=== PATIENT | female | born 1950 | race Caucasian/White ===

== ENCOUNTER 2024-10-21 08:27 | Inpatient (IN) | payer OTHER ==
[2024-10-21] VITALS (43 sets, daily range): BP systolic 89–139; BP diastolic 30–71
[~2024-10-21] VITALS: Ht 165.1 cm; Wt 75.0 kg
[~2024-10-21 08:27] MED LIST: HUMULIN R100 UNIT/1 IJ; IRON325 M1 PO; LANTUS SOL100 UNIT/1 SC; LISINOPRIL10 M1 PO; VIBRA-TAB100 MG PO
[2024-10-21] MEDS ORDERED: IOHEXOL 300 MG/ML 100 ML VIAL IV ONE (08:45)
[2024-10-21] MEDS ORDERED: SODIUM CHLORIDE 0.9% 1,000 ML IV ONE ×3 (08:45→14:00)
[2024-10-21] MEDS ORDERED: Metoclopramide Hydrochloride 10 MG/2 ML VIAL IV ONE (08:50)
[2024-10-21] MEDS ORDERED: diphenhydrAMINE hydrochloride 50 MG/ML VIAL IV ONE (08:50)
[2024-10-21 10:00] LABS: MEAN CELL VOLUME 99.0 fl (81.0-99.0); MEAN CORPUSCULAR HGB 28.8 pg (27.0-31.0); MEAN PLATELET VOLUME 9.6 fl (9.6-12.3); NUCLEATED RED BLOOD CELL 0.0 % (0.0-0.0); NUCLEATED RED BLOOD CELL 0.0 10*3/uL (0.0-0.0); PLATELET COUNT AUTOMATED 509 10*3/uL (130-400); RED CELL DISTRI WIDTH 15.7 % (0-14.5)
[2024-10-21 10:02] LABS: MANUAL DIFF REFLEX YES
[2024-10-21 10:25] LABS: BASOPHILS 1 % (0-1)
[2024-10-21] MEDS ORDERED: SODIUM CHLORIDE 0.9% 1,000 ML IV SCH ×2 (10:25→11:20)
[2024-10-21 10:27] LABS: PLATELET SUFFICIENCY HIGH (NORMAL)
[2024-10-21 10:28] LABS: VACUOLATION OF NEUTROPHILS SLIGHT
[2024-10-21 10:32] LABS: BUN 43 mg/dl (9-23); SGPT/ALT 11 U/L (5-49)
[2024-10-21] MEDS ORDERED: CIPROFLOXACIN 200 ML IV ONE (10:35)
[2024-10-21] MEDS ORDERED: INSULIN REGULAR IN 0.9 % NACL 100 ML IV SCH ×2 (10:40→11:25)
[2024-10-21] MEDS ORDERED: ACETAMINOPHEN 325 MG TAB PO PRN (11:20)
[2024-10-21] MEDS ORDERED: ACETAMINOPHEN 650 MG SUPP R PRN (11:20)
[2024-10-21] MEDS ORDERED: LISINOPRIL20 MG PO (11:23)
[2024-10-21] MEDS ORDERED: HYDROCHLOROTH12.5 M3 PO (11:23)
[2024-10-21] MEDS ORDERED: POTASSIUM CHLORIDE 20 MEQ TAB PO PRN (11:25)
[2024-10-21] MEDS ORDERED: POTASSIUM CHLORIDE 20 MEQ/100 ML BAG IV PRN (11:25)
[2024-10-21 11:49] LABS: BILIRUBIN Negative (Negative); BLOOD Negative (Negative); CLARITY Cloudy (Clear); COLOR Yellow (Yellow); KETONE 2+ (Negative); LEUKO ESTERASE 1+ (Negative); NITRITE Negative (Negative); PH 5.0 (4.5-8.0); SPECIFIC GRAVITY 1.025 (1.001-1.030); UROBILINOGEN 0.2 E.U./dl (0.0-1.0)
[2024-10-21 11:55] LABS: BACTERIA 4+; WBC 21-30 wbc/hpf (0-5)
[2024-10-21 11:56] LABS: EPITHELIAL CELLS 16-20
[2024-10-21 11:57] LABS: RBC 0-2 rbc/hpf (0-2); YEAST 1+
[2024-10-21] MEDS ORDERED: SODIUM CHLORIDE 0.45% 1,000 ML IV SCH (12:00)
[2024-10-21] MEDS ORDERED: NOREPINEPHRINE BITARTRATE/D5W 250 ML IV SCH (14:25)
[2024-10-21 15:16] LABS: BUN 35 mg/dl (9-23)
[2024-10-21 18:46] LABS: BUN 41.0 mg/dl (9-23)
[2024-10-21 22:39] LABS: BUN 46.0 mg/dl (9-23)
[2024-10-22] VITALS: BP 102/36
[2024-10-22 02:07] LABS: BUN 46.0 mg/dl (9-23)
[2024-10-22] MEDS ORDERED: DEXTROSE 5% SALINE 0.45% 1,000 ML IV SCH (03:10)
[2024-10-22 04:00] VITALS: BP 105/45
[2024-10-22 06:55] LABS: MEAN CORPUSCULAR HGB 28.8 pg (27.0-31.0); MEAN PLATELET VOLUME 9.4 fl (9.6-12.3); NUCLEATED RED BLOOD CELL 0.0 % (0.0-0.0); NUCLEATED RED BLOOD CELL 0.0 10*3/uL (0.0-0.0); RED CELL DISTRI WIDTH 16.0 % (0-14.5)
[2024-10-22 06:59] LABS: MEAN CELL VOLUME 88.0 fl (81.0-99.0); PLATELET COUNT AUTOMATED 302 10*3/uL (130-400)
[2024-10-22 07:00] LABS: MANUAL DIFF REFLEX YES
[2024-10-22 07:24] LABS: PLATELET SUFFICIENCY NORMAL (NORMAL)
[2024-10-22 08:00] VITALS: BP 141/53
[2024-10-22 08:08] LABS: BUN 44.0 mg/dl (9-23); FREE T4 1.57 ng/dl (0.89-1.76); SGPT/ALT 16.0 U/L (5-49)
[2024-10-22] MEDS ORDERED: ATORVASTATIN CALCIUM 40 MG TABLET PO SCH (10:00)
[2024-10-22] MEDS ORDERED: METOPROLOL SUCCINATE XR 25 MG TAB PO SCH (10:00)
[2024-10-22] MEDS ORDERED: CIPROFLOXACIN 200 ML IV SCH (10:00)
[2024-10-22 10:32] LABS: BUN 44.0 mg/dl (9-23)
[2024-10-22 12:00] VITALS: BP 119/48
[2024-10-22 14:20] LABS: BUN 42.0 mg/dl (9-23)
[2024-10-22] MEDS ORDERED: HEEL PROTECTOR DEVICE ONE (14:24)
[2024-10-22 16:00] VITALS: BP 136/52
[2024-10-22] MEDS ORDERED: FUROSEMIDE 40 MG/4 ML VIAL IV ONE (17:25)
[2024-10-22 18:20] LABS: BUN 39.0 mg/dl (9-23)
[2024-10-22 20:00] VITALS: BP 158/56
[2024-10-22 22:40] LABS: BUN 37.0 mg/dl (9-23)
[2024-10-23] VITALS: BP 155/53
[2024-10-23 02:43] LABS: BUN 35.0 mg/dl (9-23)
[2024-10-23] MEDS ORDERED: FUROSEMIDE 40 MG/4 ML VIAL IV ONE (03:05)
[2024-10-23] MEDS ORDERED: Insulin Glargine, Recombinan 1 UNIT/0.01 ML SC SCH ×3 (03:05→22:00)
[2024-10-23] MEDS ORDERED: DEXTROSE 50% 25 GM/50 ML VIAL IV PRN ×2 (03:05→17:20)
[2024-10-23 04:00] VITALS: BP 111/53
[2024-10-23 05:11] LABS: BUN 34.0 mg/dl (9-23)
[2024-10-23 06:31] LABS: BASO # 0.0 10*3/uL (0.0-0.1); BASO % 0.1 % (0.0-1.0); EOS # 0.0 10*3/uL (0.0-0.4); EOS % 0.1 % (1.0-4.0); MEAN CELL VOLUME 85.9 fl (81.0-99.0); MEAN CORPUSCULAR HGB 28.1 pg (27.0-31.0); MEAN PLATELET VOLUME 9.7 fl (9.6-12.3); MONO # 0.9 10*3/uL (0.1-1.0); MONO % 6.6 % (3.0-9.0); NEUT # 11.5 10*3/uL (2.3-7.9); NEUT % 85.3 % (47.0-73.0); NUCLEATED RED BLOOD CELL 0.0 % (0.0-0.0); NUCLEATED RED BLOOD CELL 0.0 10*3/uL (0.0-0.0); PLATELET COUNT AUTOMATED 258 10*3/uL (130-400); RED CELL DISTRI WIDTH 16.7 % (0-14.5)
[2024-10-23] MEDS ORDERED: POTASSIUM CHLORIDE 20 MEQ/100 ML BAG IV PRN (07:00)
[2024-10-23] MEDS ORDERED: POTASSIUM CHLORIDE 20 MEQ TAB PO PRN (07:00)
[2024-10-23] MEDS ORDERED: INSULIN REGULAR IN 0.9 % NACL 100 ML IV SCH (07:00)
[2024-10-23] MEDS ORDERED: DEXTROSE 5% SALINE 0.45% 1,000 ML IV SCH (07:05)
[2024-10-23] MEDS ORDERED: INSULIN LISPRO 1 UNIT/0.01 ML SQ SCH ×2 (07:30→22:00)
[2024-10-23 08:00] VITALS: BP 146/52
[2024-10-23] MEDS ORDERED: VANCOMYCIN HCL 1,250 MG in SODIUM CHLORIDE 0.9% 250 ML IV SCH (09:00)
[2024-10-23 09:14] LABS: BUN 27.0 mg/dl (9-23)
[2024-10-23 12:00] VITALS: BP 152/62
[2024-10-23 12:23] LABS: BUN 31.0 mg/dl (9-23)
[2024-10-23 16:00] VITALS: BP 130/55
[2024-10-23 16:38] LABS: BUN 28.0 mg/dl (9-23)
[2024-10-23 20:00] VITALS: BP 157/33
[2024-10-24] VITALS (7 sets, daily range): BP systolic 138–169; BP diastolic 55–79
[2024-10-24 06:17] LABS: MEAN CELL VOLUME 85.0 fl (81.0-99.0); MEAN CORPUSCULAR HGB 28.5 pg (27.0-31.0); MEAN PLATELET VOLUME 9.6 fl (9.6-12.3); NUCLEATED RED BLOOD CELL 0.0 % (0.0-0.0); NUCLEATED RED BLOOD CELL 0.0 10*3/uL (0.0-0.0); PLATELET COUNT AUTOMATED 219 10*3/uL (130-400); RED CELL DISTRI WIDTH 16.6 % (0-14.5)
[2024-10-24 06:19] LABS: MANUAL DIFF REFLEX YES
[2024-10-24 06:21] LABS: BUN 26.0 mg/dl (9-23)
[2024-10-24 06:52] LABS: PLATELET SUFFICIENCY NORMAL (NORMAL)
[2024-10-24] MEDS ORDERED: ASPIRIN ENTERIC COATED 81 MG TAB PO SCH (10:00)
[2024-10-24] MEDS ORDERED: FOAM BANDAGE 1 EACH BANDAGE T ONE (23:32)
[2024-10-25 05:59] LABS: BUN 21 mg/dl (9-23)
[2024-10-25 06:21] LABS: BASO # 0.0 10*3/uL (0.0-0.1); BASO % 0.2 % (0.0-1.0); EOS # 0.1 10*3/uL (0.0-0.4); EOS % 0.8 % (1.0-4.0); MEAN CELL VOLUME 85.7 fl (81.0-99.0); MEAN CORPUSCULAR HGB 28.7 pg (27.0-31.0); MEAN PLATELET VOLUME 9.8 fl (9.6-12.3); MONO # 0.5 10*3/uL (0.1-1.0); MONO % 5.8 % (3.0-9.0); NEUT # 6.8 10*3/uL (2.3-7.9); NEUT % 78.2 % (47.0-73.0); NUCLEATED RED BLOOD CELL 0.0 % (0.0-0.0); NUCLEATED RED BLOOD CELL 0.0 10*3/uL (0.0-0.0); PLATELET COUNT AUTOMATED 192 10*3/uL (130-400); RED CELL DISTRI WIDTH 16.2 % (0-14.5)
[2024-10-25 08:00] VITALS: BP 175/62
[2024-10-25] MEDS ORDERED: LISINOPRIL 20 MG TAB PO SCH (10:00)
[2024-10-25 12:00] VITALS: BP 161/57
[2024-10-25] MEDS ORDERED: ATORVASTATIN CA40 M1 PO (12:37)
[2024-10-25] MEDS ORDERED: ASPIRIN ADULT L81 M2 PO (12:37)
[2024-10-25] MEDS ORDERED: METOPROLOL SUCC25 M2 PO (12:37)
[2024-10-25] MEDS ORDERED: CIPRO500 MG PO (13:39)
== END 2024-10-25 16:25 | disposition home or self-care (01) | DRG 871 ==
LOC: ED 08:27 → ICCU 10:45 → EDHOLD 10:45 → ICCU 10:57 → 4E 10-24 18:18
PROVIDERS: Nurse Practitioner Family; Student in an Organized Health Care Education/Training Program; ADMIT Internal Medicine; ATTEND Internal Medicine
PROC: 05HC33Z Insertion of Infusion Device into Left Basilic Vein, Percutaneous Approach (ICD-10-PCS; principal; 2024-10-21)
PROC: 02HV33Z Insertion of Infusion Device into Superior Vena Cava, Percutaneous Approach (ICD-10-PCS; 2024-10-22)
PROC: B548ZZA Ultrasonography of Superior Vena Cava, Guidance (ICD-10-PCS; 2024-10-22)
DX: A41.9 Sepsis, unspecified organism (principal); E10.10 Type 1 diabetes mellitus with ketoacidosis without coma; N17.0 Acute kidney failure with tubular necrosis; J69.0 Pneumonitis due to inhalation of food and vomit; I21.A1 Myocardial infarction type 2; E44.0 Moderate protein-calorie malnutrition; E87.5 Hyperkalemia; K21.9 Gastro-esophageal reflux disease without esophagitis; I10 Essential (primary) hypertension; Z66 Do not resuscitate; R65.20 Severe sepsis without septic shock; E86.1 Hypovolemia; D75.839 Thrombocytosis, unspecified; D64.9 Anemia, unspecified; E55.9 Vitamin D deficiency, unspecified; K52.9 Noninfective gastroenteritis and colitis, unspecified; Z88.0 Allergy status to penicillin; Z88.2 Allergy status to sulfonamides; Z79.899 Other long term (current) drug therapy; Z79.01 Long term (current) use of anticoagulants; Z79.2 Long term (current) use of antibiotics; Z86.73 Personal history of transient ischemic attack (TIA), and cerebral infarction without residual deficits; Z79.4 Long term (current) use of insulin; Z98.891 History of uterine scar from previous surgery; Z83.3 Family history of diabetes mellitus; Z68.27 Body mass index [BMI] 27.0-27.9, adult

== ENCOUNTER 2024-10-31 02:19 | Inpatient (IN) | payer OTHER ==
[2024-10-31] VITALS (9 sets, daily range): BP systolic 121–154; BP diastolic 38–71
[~2024-10-31] VITALS: Ht 170.1 cm; Wt 72.6 kg
[~2024-10-31 02:19] MED LIST changes: +ASPIRIN ADULT L81 M2 PO; +ATORVASTATIN CA40 M1 PO; +CIPRO500 MG PO; +HYDROCHLOROTH12.5 M3 PO; +LISINOPRIL20 MG PO; +METOPROLOL SUCC25 M2 PO
[2024-10-31] MEDS ORDERED: SODIUM CHLORIDE 0.9% 1,000 ML IV ONE ×4 (02:40→10:45)
[2024-10-31] MEDS ORDERED: Ondansetron Hydrochloride 4 MG/2 ML VIAL IV ONE (02:40)
[2024-10-31 02:53] LABS: MEAN CELL VOLUME 91.8 fl (81.0-99.0); MEAN CORPUSCULAR HGB 28.5 pg (27.0-31.0); MEAN PLATELET VOLUME 8.6 fl (9.6-12.3); NUCLEATED RED BLOOD CELL 0.0 % (0.0-0.0); NUCLEATED RED BLOOD CELL 0.0 10*3/uL (0.0-0.0); PLATELET COUNT AUTOMATED 568 10*3/uL (130-400); RED CELL DISTRI WIDTH 16.8 % (0-14.5)
[2024-10-31 03:02] LABS: MANUAL DIFF REFLEX YES
[2024-10-31 03:22] LABS: BUN 31.0 mg/dl (9-23)
[2024-10-31 03:26] LABS: PLATELET SUFFICIENCY HIGH (NORMAL)
[2024-10-31] MEDS ORDERED: Albuterol Sulf/Ipratropium 3 ML VIAL NEB ONE (04:30)
[2024-10-31] MEDS ORDERED: INSULIN REGULAR IN 0.9 % NACL 100 ML IV ONE (05:05)
[2024-10-31] MEDS ORDERED: INSULIN LISPRO 1 UNIT/0.01 ML SQ ONE (05:05)
[2024-10-31] MEDS ORDERED: Ondansetron Hydrochloride 4 MG/2 ML VIAL IV PRN (05:55)
[2024-10-31] MEDS ORDERED: ACETAMINOPHEN 325 MG TAB PO PRN (05:55)
[2024-10-31] MEDS ORDERED: ACETAMINOPHEN 650 MG SUPP R PRN (05:55)
[2024-10-31] MEDS ORDERED: BISACODYL 10 MG SUPP R PRN (05:55)
[2024-10-31] MEDS ORDERED: DEXTROSE 50% 25 GM/50 ML VIAL IV PRN (06:00)
[2024-10-31] MEDS ORDERED: POTASSIUM CHLORIDE 20 MEQ/100 ML BAG IV PRN (06:00)
[2024-10-31] MEDS ORDERED: POTASSIUM CHLORIDE 20 MEQ TAB PO PRN (06:00)
[2024-10-31] MEDS ORDERED: INSULIN REGULAR IN 0.9 % NACL 100 ML IV SCH (06:00)
[2024-10-31 06:22] LABS: BILIRUBIN Negative (Negative); BLOOD Trace-Lysed (Negative); CLARITY Cloudy (Clear); COLOR Yellow (Yellow); KETONE 3+ (Negative); LEUKO ESTERASE Trace (Negative); NITRITE Negative (Negative); PH 5.0 (4.5-8.0); SPECIFIC GRAVITY 1.020 (1.001-1.030); UROBILINOGEN 1.0 E.U./dl (0.0-1.0)
[2024-10-31 06:43] LABS: YEAST 4+
[2024-10-31 07:47] LABS: MEAN CELL VOLUME 92.4 fl (81.0-99.0); MEAN CORPUSCULAR HGB 29.4 pg (27.0-31.0); MEAN PLATELET VOLUME 8.5 fl (9.6-12.3); NUCLEATED RED BLOOD CELL 0.0 % (0.0-0.0); NUCLEATED RED BLOOD CELL 0.0 10*3/uL (0.0-0.0); PLATELET COUNT AUTOMATED 466 10*3/uL (130-400); RED CELL DISTRI WIDTH 17.0 % (0-14.5)
[2024-10-31 07:50] LABS: MANUAL DIFF REFLEX YES
[2024-10-31 08:14] LABS: PLATELET SUFFICIENCY HIGH (NORMAL); VACUOLATION OF NEUTROPHILS SLIGHT
[2024-10-31 08:30] LABS: BUN 26.0 mg/dl (9-23); SGPT/ALT 15.0 U/L (5-49)
[2024-10-31] MEDS ORDERED: FLUCONAZOLE IV SCH (09:00)
[2024-10-31] MEDS ORDERED: DEXTROSE 5% SALINE 0.45% 1,000 ML IV SCH (11:15)
[2024-10-31] MEDS ORDERED: POTASSIUM CHLORIDE IN WATER 100 ML IV ONE (11:25)
[2024-10-31 12:37] LABS: BUN 26.0 mg/dl (9-23)
[2024-10-31] MEDS ORDERED: POTASSIUM CHLORIDE 100 ML IV ONE (14:10)
[2024-10-31] MEDS ORDERED: HEPARIN SODIUM 10 UNIT/ML SYR IV PRN (17:20)
[2024-10-31 17:27] LABS: BUN 24.0 mg/dl (9-23)
[2024-10-31 20:25] LABS: BUN 23.0 mg/dl (9-23)
[2024-11-01] VITALS (10 sets, daily range): BP systolic 113–180; BP diastolic 42–70
[2024-11-01 00:59] LABS: BUN 23.0 mg/dl (9-23)
[2024-11-01 06:02] LABS: BUN 21 mg/dl (9-23)
[2024-11-01 08:04] LABS: BASO # 0.1 10*3/uL (0.0-0.1); BASO % 0.3 % (0.0-1.0); EOS # 0.1 10*3/uL (0.0-0.4); EOS % 0.5 % (1.0-4.0); MEAN CELL VOLUME 92.5 fl (81.0-99.0); MEAN CORPUSCULAR HGB 29.1 pg (27.0-31.0); MEAN PLATELET VOLUME 8.7 fl (9.6-12.3); MONO # 0.6 10*3/uL (0.1-1.0); MONO % 3.1 % (3.0-9.0); NEUT # 17.5 10*3/uL (2.3-7.9); NEUT % 89.5 % (47.0-73.0); NUCLEATED RED BLOOD CELL 0.0 % (0.0-0.0); NUCLEATED RED BLOOD CELL 0.0 10*3/uL (0.0-0.0); RED CELL DISTRI WIDTH 17.6 % (0-14.5)
[2024-11-01 08:25] LABS: BUN 17 mg/dl (9-23)
[2024-11-01 09:05] LABS: PLATELET COUNT AUTOMATED 325 10*3/uL (130-400)
[2024-11-01 12:15] LABS: BUN 18 mg/dl (9-23)
[2024-11-01] MEDS ORDERED: PROPOFOL 200 MG/20 ML VIAL IV ONE (15:11)
[2024-11-01] MEDS ORDERED: Lidocaine Hydrochloride 2% 5 ML SDV IV ONE (15:11)
[2024-11-01] MEDS ORDERED: Insulin Glargine, Recombinan 1 UNIT/0.01 ML SC ONE (16:05)
[2024-11-01 16:32] LABS: BUN 17 mg/dl (9-23)
[2024-11-01 20:32] LABS: BUN 16 mg/dl (9-23)
[2024-11-02] VITALS: BP 186/65
[2024-11-02 00:05] LABS: BUN 15 mg/dl (9-23)
[2024-11-02 04:00] VITALS: BP 159/39
[2024-11-02 04:32] LABS: MEAN CELL VOLUME 90.0 fl (81.0-99.0); MEAN CORPUSCULAR HGB 28.4 pg (27.0-31.0); MEAN PLATELET VOLUME 8.9 fl (9.6-12.3); NUCLEATED RED BLOOD CELL 0.0 % (0.0-0.0); NUCLEATED RED BLOOD CELL 0.0 10*3/uL (0.0-0.0); PLATELET COUNT AUTOMATED 313 10*3/uL (130-400); RED CELL DISTRI WIDTH 17.6 % (0-14.5)
[2024-11-02 04:34] LABS: MANUAL DIFF REFLEX YES
[2024-11-02 04:53] LABS: BUN 14 mg/dl (9-23)
[2024-11-02 05:03] LABS: PLATELET SUFFICIENCY NORMAL (NORMAL)
[2024-11-02 08:00] VITALS: BP 157/28
[2024-11-02] MEDS ORDERED: BARIUM SULFATE 98% 340 GM BOT PO ONE ×2 (08:15→14:11)
[2024-11-02 09:12] LABS: BUN 13 mg/dl (9-23)
[2024-11-02] MEDS ORDERED: POTASSIUM CHLORIDE 100 ML IV ONE ×2 (11:45→13:00)
[2024-11-02 12:00] VITALS: BP 176/68
[2024-11-02 13:29] LABS: BUN 12 mg/dl (9-23)
[2024-11-02 16:00] VITALS: BP 180/72
[2024-11-02] MEDS ORDERED: Insulin Glargine, Recombinan 1 UNIT/0.01 ML SC ONE (16:45)
[2024-11-02 17:22] LABS: BUN 11 mg/dl (9-23)
[2024-11-02] MEDS ORDERED: DEXTROSE 50% 25 GM/50 ML VIAL IV PRN (18:20)
[2024-11-02 20:00] VITALS: BP 164/65
[2024-11-02] MEDS ORDERED: NYSTATIN 15 GM BOT T SCH (22:00)
[2024-11-02] MEDS ORDERED: INSULIN LISPRO 1 UNIT/0.01 ML SQ SCH (22:00)
[2024-11-02 23:14] LABS: BUN 12 mg/dl (9-23)
[2024-11-03] VITALS: BP 115/76
[2024-11-03 04:00] VITALS: BP 140/64
[2024-11-03 05:24] LABS: BUN 11 mg/dl (9-23)
[2024-11-03 06:01] LABS: BASO # 0.0 10*3/uL (0.0-0.1); BASO % 0.3 % (0.0-1.0); EOS # 0.1 10*3/uL (0.0-0.4); EOS % 1.5 % (1.0-4.0); MEAN CELL VOLUME 90.9 fl (81.0-99.0); MEAN CORPUSCULAR HGB 29.1 pg (27.0-31.0); MEAN PLATELET VOLUME 8.9 fl (9.6-12.3); MONO # 0.3 10*3/uL (0.1-1.0); MONO % 3.9 % (3.0-9.0); NEUT # 6.7 10*3/uL (2.3-7.9); NEUT % 86.3 % (47.0-73.0); NUCLEATED RED BLOOD CELL 0.0 % (0.0-0.0); NUCLEATED RED BLOOD CELL 0.0 10*3/uL (0.0-0.0); PLATELET COUNT AUTOMATED 291 10*3/uL (130-400); RED CELL DISTRI WIDTH 17.1 % (0-14.5)
[2024-11-03 08:00] VITALS: BP 184/63
[2024-11-03] MEDS ORDERED: METOPROLOL SUCCINATE XR 25 MG TAB PO SCH (10:00)
[2024-11-03] MEDS ORDERED: LISINOPRIL 20 MG TAB PO SCH (10:00)
[2024-11-03] MEDS ORDERED: ATORVASTATIN CALCIUM 40 MG TABLET PO SCH (10:00)
[2024-11-03] MEDS ORDERED: ASPIRIN ENTERIC COATED 81 MG TAB PO SCH (10:00)
[2024-11-03 12:00] VITALS: BP 156/69
[2024-11-03 16:01] VITALS: BP 138/72
[2024-11-03 20:00] VITALS: BP 127/67
[2024-11-03] MEDS ORDERED: Insulin Glargine, Recombinan 1 UNIT/0.01 ML SC SCH (22:00)
[2024-11-04] VITALS: BP 130/65
[2024-11-04 05:05] LABS: BUN 8 mg/dl (9-23)
[2024-11-04 06:02] LABS: BASO # 0.0 10*3/uL (0.0-0.1); BASO % 0.6 % (0.0-1.0); EOS # 0.1 10*3/uL (0.0-0.4); EOS % 2.5 % (1.0-4.0); MEAN CELL VOLUME 90.2 fl (81.0-99.0); MEAN CORPUSCULAR HGB 29.8 pg (27.0-31.0); MEAN PLATELET VOLUME 9.1 fl (9.6-12.3); MONO # 0.5 10*3/uL (0.1-1.0); MONO % 8.5 % (3.0-9.0); NEUT # 4.1 10*3/uL (2.3-7.9); NEUT % 77.2 % (47.0-73.0); NUCLEATED RED BLOOD CELL 0.0 % (0.0-0.0); NUCLEATED RED BLOOD CELL 0.0 10*3/uL (0.0-0.0); PLATELET COUNT AUTOMATED 287 10*3/uL (130-400); RED CELL DISTRI WIDTH 16.7 % (0-14.5)
[2024-11-04 08:00] VITALS: BP 169/56
[2024-11-04 12:00] VITALS: BP 169/57
[2024-11-04 16:00] VITALS: BP 100/58
[2024-11-04] MEDS ORDERED: MULTIVITAMIN TRACE ELEMENT IV SCH (18:00)
[2024-11-04] MEDS ORDERED: TOTAL PARENTERAL NUTRITION IV SCH (18:00)
[2024-11-04] MEDS ORDERED: [UNRECOGNIZED DRUG - OTHER] IV SCH (18:00)
[2024-11-04] MEDS ORDERED: [UNRECOGNIZED DRUG - OTHER] IV SCH (18:00)
[2024-11-04 20:00] VITALS: BP 123/57
[2024-11-05] VITALS: BP 126/60
[2024-11-05] MEDS ORDERED: INSULIN LISPRO 1 UNIT/0.01 ML SQ ONE (04:45)
[2024-11-05 05:10] LABS: BUN 11 mg/dl (9-23); SGPT/ALT 14 U/L (5-49)
[2024-11-05 06:15] LABS: BASO # 0.1 10*3/uL (0.0-0.1); BASO % 1.0 % (0.0-1.0); EOS # 0.2 10*3/uL (0.0-0.4); EOS % 3.2 % (1.0-4.0); MEAN CELL VOLUME 90.1 fl (81.0-99.0); MEAN CORPUSCULAR HGB 29.0 pg (27.0-31.0); MEAN PLATELET VOLUME 9.7 fl (9.6-12.3); MONO # 0.5 10*3/uL (0.1-1.0); MONO % 9.5 % (3.0-9.0); NEUT # 3.5 10*3/uL (2.3-7.9); NEUT % 68.8 % (47.0-73.0); NUCLEATED RED BLOOD CELL 0.0 % (0.0-0.0); NUCLEATED RED BLOOD CELL 0.0 10*3/uL (0.0-0.0); PLATELET COUNT AUTOMATED 305 10*3/uL (130-400); RED CELL DISTRI WIDTH 16.5 % (0-14.5)
[2024-11-05 08:00] VITALS: BP 131/65
[2024-11-05] MEDS ORDERED: FUROSEMIDE 40 MG/4 ML VIAL IV ONE (09:50)
[2024-11-05 12:00] VITALS: BP 134/67
[2024-11-05] MEDS ORDERED: FOAM BANDAGE 1 EACH BANDAGE T ONE (14:15)
[2024-11-05 16:00] VITALS: BP 157/50
[2024-11-05] MEDS ORDERED: [UNRECOGNIZED DRUG - OTHER] IV SCH (18:00)
[2024-11-05 20:00] VITALS: BP 185/61
[2024-11-06] VITALS: BP 165/83
[2024-11-06 06:53] LABS: BASO # 0.0 10*3/uL (0.0-0.1); BASO % 0.7 % (0.0-1.0); EOS # 0.2 10*3/uL (0.0-0.4); EOS % 2.9 % (1.0-4.0); MEAN CELL VOLUME 90.5 fl (81.0-99.0); MEAN CORPUSCULAR HGB 29.5 pg (27.0-31.0); MEAN PLATELET VOLUME 8.9 fl (9.6-12.3); MONO # 0.4 10*3/uL (0.1-1.0); MONO % 7.7 % (3.0-9.0); NEUT # 3.8 10*3/uL (2.3-7.9); NEUT % 70.8 % (47.0-73.0); NUCLEATED RED BLOOD CELL 0.0 % (0.0-0.0); NUCLEATED RED BLOOD CELL 0.0 10*3/uL (0.0-0.0); PLATELET COUNT AUTOMATED 365 10*3/uL (130-400); RED CELL DISTRI WIDTH 16.6 % (0-14.5)
[2024-11-06 07:44] LABS: SGPT/ALT 17 U/L (5-49)
[2024-11-06 07:45] LABS: BUN 21 mg/dl (9-23)
[2024-11-06 08:00] VITALS: BP 179/73
[2024-11-06 12:00] VITALS: BP 156/88
[2024-11-06 16:00] VITALS: BP 183/82
[2024-11-06] MEDS ORDERED: [UNRECOGNIZED DRUG - OTHER] IV SCH (18:00)
[2024-11-06 20:00] VITALS: BP 179/58
[2024-11-07] VITALS: BP 160/70
[2024-11-07 06:47] LABS: BUN 24 mg/dl (9-23); SGPT/ALT 12 U/L (5-49)
[2024-11-07 06:51] LABS: BASO # 0.1 10*3/uL (0.0-0.1); BASO % 0.7 % (0.0-1.0); EOS # 0.3 10*3/uL (0.0-0.4); EOS % 3.9 % (1.0-4.0); MEAN CELL VOLUME 88.2 fl (81.0-99.0); MEAN CORPUSCULAR HGB 29.4 pg (27.0-31.0); MEAN PLATELET VOLUME 9.3 fl (9.6-12.3); MONO # 0.5 10*3/uL (0.1-1.0); MONO % 7.3 % (3.0-9.0); NEUT # 5.0 10*3/uL (2.3-7.9); NEUT % 71.5 % (47.0-73.0); NUCLEATED RED BLOOD CELL 0.0 % (0.0-0.0); NUCLEATED RED BLOOD CELL 0.0 10*3/uL (0.0-0.0); PLATELET COUNT AUTOMATED 371 10*3/uL (130-400); RED CELL DISTRI WIDTH 16.9 % (0-14.5)
[2024-11-07 08:00] VITALS: BP 165/63
[2024-11-07] MEDS ORDERED: FLUCONAZOLE 100 MG TAB PO SCH (10:00)
[2024-11-07] MEDS ORDERED: LISINOPRIL 20 MG TAB PO SCH (10:00)
[2024-11-07 12:00] VITALS: BP 162/86
[2024-11-07 16:00] VITALS: BP 162/96
[2024-11-07] MEDS ORDERED: [UNRECOGNIZED DRUG - OTHER] IV SCH (18:00)
[2024-11-07 20:00] VITALS: BP 180/60
[2024-11-08] VITALS (8 sets, daily range): BP systolic 136–189; BP diastolic 37–93
[2024-11-08 06:56] LABS: BUN 29 mg/dl (9-23); SGPT/ALT 14 U/L (5-49)
[2024-11-08 09:29] LABS: BASO # 0.1 10*3/uL (0.0-0.1); BASO % 1.1 % (0.0-1.0); EOS # 0.3 10*3/uL (0.0-0.4); EOS % 4.9 % (1.0-4.0); MEAN CORPUSCULAR HGB 29.3 pg (27.0-31.0); MEAN PLATELET VOLUME 9.5 fl (9.6-12.3); MONO # 0.4 10*3/uL (0.1-1.0); MONO % 6.4 % (3.0-9.0); NEUT # 3.6 10*3/uL (2.3-7.9); NEUT % 64.8 % (47.0-73.0); NUCLEATED RED BLOOD CELL 0.0 % (0.0-0.0); NUCLEATED RED BLOOD CELL 0.0 10*3/uL (0.0-0.0); PLATELET COUNT AUTOMATED 427 10*3/uL (130-400); RED CELL DISTRI WIDTH 16.7 % (0-14.5)
[2024-11-08 09:51] LABS: MEAN CELL VOLUME 91.8 fl (81.0-99.0)
[2024-11-08] MEDS ORDERED: Lactated Ringer's Solution 1,000 ML IV ONE (11:04)
[2024-11-08] MEDS ORDERED: Albuterol Sulf/Ipratropium 3 ML VIAL NEB ONE ×2 (12:25→12:54)
[2024-11-08] MEDS ORDERED: Lidocaine Hydrochloride 5 ML VIAL IV ONE (12:48)
[2024-11-08] MEDS ORDERED: PROPOFOL 200 MG/20 ML VIAL IV ONE (12:48)
[2024-11-08] MEDS ORDERED: [UNRECOGNIZED DRUG - OTHER] IV SCH (18:00)
[2024-11-08] MEDS ORDERED: FOAM BANDAGE HEEL T ONE (18:27)
[2024-11-08] MEDS ORDERED: FOAM BANDAGE 1 EACH BANDAGE T ONE (18:27)
[2024-11-08] MEDS ORDERED: Insulin Glargine, Recombinan 1 UNIT/0.01 ML SC SCH (22:00)
[2024-11-09] VITALS: BP 136/64
[2024-11-09 06:28] LABS: BASO # 0.1 10*3/uL (0.0-0.1); BASO % 0.9 % (0.0-1.0); EOS # 0.2 10*3/uL (0.0-0.4); EOS % 4.1 % (1.0-4.0); MEAN CELL VOLUME 91.8 fl (81.0-99.0); MEAN CORPUSCULAR HGB 29.0 pg (27.0-31.0); MEAN PLATELET VOLUME 9.5 fl (9.6-12.3); MONO # 0.4 10*3/uL (0.1-1.0); MONO % 7.6 % (3.0-9.0); NEUT # 4.0 10*3/uL (2.3-7.9); NEUT % 68.1 % (47.0-73.0); NUCLEATED RED BLOOD CELL 0.0 % (0.0-0.0); NUCLEATED RED BLOOD CELL 0.0 10*3/uL (0.0-0.0); PLATELET COUNT AUTOMATED 400 10*3/uL (130-400); RED CELL DISTRI WIDTH 16.9 % (0-14.5)
[2024-11-09 06:31] LABS: BUN 32 mg/dl (9-23); SGPT/ALT 15 U/L (5-49)
[2024-11-09 08:00] VITALS: BP 151/58
[2024-11-09] MEDS ORDERED: SODIUM CHLORIDE 0.9% 1,000 ML IV ONE (10:00)
[2024-11-09] MEDS ORDERED: INSULIN REGULAR, HUMAN 1 UNIT/0.01 ML IV ONE (10:00)
[2024-11-09 12:00] VITALS: BP 163/67
[2024-11-09 13:10] LABS: BUN 34 mg/dl (9-23)
[2024-11-09 16:00] VITALS: BP 149/54
[2024-11-09 20:00] VITALS: BP 162/70
[2024-11-10] VITALS (7 sets, daily range): BP systolic 140–191; BP diastolic 62–97
[2024-11-10 09:26] LABS: BUN 24 mg/dl (9-23)
[2024-11-11] VITALS: BP 164/56
[2024-11-11] MEDS ORDERED: FOAM BANDAGE 1 EACH BANDAGE T ONE (04:08)
[2024-11-11 05:20] VITALS: BP 149/56
[2024-11-11 06:07] LABS: BASO # 0.0 10*3/uL (0.0-0.1); BASO % 0.5 % (0.0-1.0); EOS # 0.2 10*3/uL (0.0-0.4); EOS % 2.5 % (1.0-4.0); MEAN CELL VOLUME 93.7 fl (81.0-99.0); MEAN CORPUSCULAR HGB 29.3 pg (27.0-31.0); MEAN PLATELET VOLUME 9.3 fl (9.6-12.3); MONO # 0.5 10*3/uL (0.1-1.0); MONO % 6.6 % (3.0-9.0); NEUT # 6.3 10*3/uL (2.3-7.9); NEUT % 78.1 % (47.0-73.0); NUCLEATED RED BLOOD CELL 0.0 % (0.0-0.0); NUCLEATED RED BLOOD CELL 0.0 10*3/uL (0.0-0.0); PLATELET COUNT AUTOMATED 482 10*3/uL (130-400); RED CELL DISTRI WIDTH 17.1 % (0-14.5)
[2024-11-11 06:14] LABS: BUN 17 mg/dl (9-23)
[2024-11-11 08:00] VITALS: BP 130/47
[2024-11-11 12:00] VITALS: BP 133/46
[2024-11-11 16:00] VITALS: BP 122/83
[2024-11-11 20:00] VITALS: BP 147/59
[2024-11-11] MEDS ORDERED: Insulin Glargine, Recombinan 1 UNIT/0.01 ML SC SCH (22:00)
[2024-11-12] VITALS: BP 131/45
[2024-11-12 05:58] LABS: BUN 25 mg/dl (9-23)
[2024-11-12 05:59] LABS: BASO # 0.0 10*3/uL (0.0-0.1); BASO % 0.6 % (0.0-1.0); EOS # 0.4 10*3/uL (0.0-0.4); EOS % 5.5 % (1.0-4.0); MEAN CELL VOLUME 92.9 fl (81.0-99.0); MEAN CORPUSCULAR HGB 28.8 pg (27.0-31.0); MEAN PLATELET VOLUME 9.3 fl (9.6-12.3); MONO # 0.5 10*3/uL (0.1-1.0); MONO % 8.0 % (3.0-9.0); NEUT # 4.5 10*3/uL (2.3-7.9); NEUT % 69.7 % (47.0-73.0); NUCLEATED RED BLOOD CELL 0.0 % (0.0-0.0); NUCLEATED RED BLOOD CELL 0.0 10*3/uL (0.0-0.0); PLATELET COUNT AUTOMATED 522 10*3/uL (130-400); RED CELL DISTRI WIDTH 17.5 % (0-14.5)
[2024-11-12 08:00] VITALS: BP 152/53
[2024-11-12] MEDS ORDERED: LISINOPRIL 40 MG TAB PO SCH (10:00)
[2024-11-12 12:00] VITALS: BP 156/60
[2024-11-12] MEDS ORDERED: LISINOPRIL40 MG PO (12:24)
[2024-11-12] MEDS ORDERED: LOPRESSOR25 MG PO (12:24)
[2024-11-12] MEDS ORDERED: LANTUS100 UNIT/1 SC (12:24)
[2024-11-12] MEDS ORDERED: ADMELOG100 UNIT/1 SQ (12:24)
[2024-11-12] MEDS ORDERED: FLUCONAZOLE100 MG PO (12:24)
[2024-11-12] MEDS ORDERED: AMLODIPINE BESYL5 MG PO (12:24)
== END 2024-11-12 14:29 | disposition home health service (06) | DRG 871 ==
LOC: ED 02:19 → 5E 05:40 → EDHOLD 05:40 → ICCU 05:40 → EDHOLD 05:59 → ICCU 09:30 → 5E 11-05 13:59
PROVIDERS: Emergency Medicine; Family Medicine; Student in an Organized Health Care Education/Training Program; ADMIT Internal Medicine; ATTEND Internal Medicine
PROC: 02HV33Z Insertion of Infusion Device into Superior Vena Cava, Percutaneous Approach (ICD-10-PCS; principal; 2024-10-30)
PROC: B548ZZA Ultrasonography of Superior Vena Cava, Guidance (ICD-10-PCS; 2024-10-30)
PROC: 0DJ08ZZ Inspection of Upper Intestinal Tract, Via Natural or Artificial Opening Endoscopic (ICD-10-PCS; 2024-11-01)
PROC: 0DH63UZ Insertion of Feeding Device into Stomach, Percutaneous Approach (ICD-10-PCS; 2024-11-08)
DX: A41.9 Sepsis, unspecified organism (principal); E11.10 Type 2 diabetes mellitus with ketoacidosis without coma; E43 Unspecified severe protein-calorie malnutrition; J69.0 Pneumonitis due to inhalation of food and vomit; N17.0 Acute kidney failure with tubular necrosis; K29.71 Gastritis, unspecified, with bleeding; E87.1 Hypo-osmolality and hyponatremia; B37.81 Candidal esophagitis; N39.0 Urinary tract infection, site not specified; D75.839 Thrombocytosis, unspecified; D64.9 Anemia, unspecified; E55.9 Vitamin D deficiency, unspecified; E86.1 Hypovolemia; I10 Essential (primary) hypertension; K21.9 Gastro-esophageal reflux disease without esophagitis; R65.20 Severe sepsis without septic shock; K52.9 Noninfective gastroenteritis and colitis, unspecified; Z88.0 Allergy status to penicillin; Z88.2 Allergy status to sulfonamides; Z86.73 Personal history of transient ischemic attack (TIA), and cerebral infarction without residual deficits; Z68.27 Body mass index [BMI] 27.0-27.9, adult

== ENCOUNTER 2024-11-24 16:25 | Inpatient (IN) | payer OTHER ==
[~2024-11-24] VITALS: Ht 170.1 cm; Wt 72.7 kg
[~2024-11-24 16:25] MED LIST changes: +ADMELOG100 UNIT/1 SQ; +AMLODIPINE BESYL5 MG PO; +FLUCONAZOLE100 MG PO; +LANTUS100 UNIT/1 SC; +LISINOPRIL40 MG PO; +LOPRESSOR25 MG PO
[2024-11-24 16:35] VITALS: BP 117/48
[2024-11-24] MEDS ORDERED: IOHEXOL 350 MG/ML 100 ML VIAL IV ONE (16:40)
[2024-11-24] MEDS ORDERED: SODIUM CHLORIDE 0.9% 100 ML BAG IV ONE (16:40)
[2024-11-24 17:05] LABS: MEAN CELL VOLUME 93.6 fl (81.0-99.0); MEAN CORPUSCULAR HGB 29.5 pg (27.0-31.0); MEAN PLATELET VOLUME 9.1 fl (9.6-12.3); NUCLEATED RED BLOOD CELL 0.0 % (0.0-0.0); NUCLEATED RED BLOOD CELL 0.0 10*3/uL (0.0-0.0); PLATELET COUNT AUTOMATED 626 10*3/uL (130-400); RED CELL DISTRI WIDTH 15.0 % (0-14.5)
[2024-11-24 17:07] LABS: MANUAL DIFF REFLEX YES
[2024-11-24 17:12] LABS: VENOUS BLOOD GAS O2 SAT 89.9 % (60.0-85.0)
[2024-11-24 17:17] LABS: ACT PARTIAL THROMBO TIME 25.1 SECONDS (20.0-32.1)
[2024-11-24 17:33] LABS: BUN 31 mg/dl (9-23); SGPT/ALT 17 U/L (5-49)
[2024-11-24 17:37] LABS: PLATELET SUFFICIENCY HIGH (NORMAL)
[2024-11-24] MEDS ORDERED: SODIUM CHLORIDE 0.9% 1,000 ML IV ONE ×3 (18:10→22:45)
[2024-11-24] MEDS ORDERED: Cefepime Hydrochloride 2 GM in SODIUM CHLORIDE 0.9% 50 ML IV ONE (18:55)
[2024-11-24 19:44] VITALS: BP 152/61
[2024-11-24 20:22] VITALS: BP 159/78
[2024-11-24 20:29] LABS: BILIRUBIN Negative (Negative); BLOOD 2+ (Negative); CLARITY Turbid (Clear); COLOR Yellow (Yellow); KETONE Trace (Negative); LEUKO ESTERASE 3+ (Negative); NITRITE Negative (Negative); PH 6.5 (4.5-8.0); SPECIFIC GRAVITY 1.025 (1.001-1.030); UROBILINOGEN 1.0 E.U./dl (0.0-1.0)
[2024-11-24] MEDS ORDERED: ACETAMINOPHEN 100 ML IV ONE (20:30)
[2024-11-24 20:47] LABS: BACTERIA 2+; EPITHELIAL CELLS 16-20; WBC TNTC wbc/hpf (0-5); YEAST 1+
[2024-11-24 21:18] VITALS: BP 148/56
[2024-11-24] MEDS ORDERED: ACETAMINOPHEN 650 MG SUPP R PRN (22:10)
[2024-11-24] MEDS ORDERED: DEXTROSE 50% 25 GM/50 ML VIAL IV PRN (22:10)
[2024-11-24] MEDS ORDERED: ACETAMINOPHEN 325 MG TAB PO PRN (22:10)
[2024-11-24] MEDS ORDERED: BISACODYL 5 MG TAB PO PRN (22:10)
[2024-11-24] MEDS ORDERED: Acetaminophen/Hydrocodone 5 MG/325 MG TABLET PO PRN (22:10)
[2024-11-24] MEDS ORDERED: Ondansetron Hydrochloride 4 MG/2 ML VIAL IV PRN (22:10)
[2024-11-24] MEDS ORDERED: BISACODYL 10 MG SUPP R PRN (22:10)
[2024-11-24 22:16] VITALS: BP 127/58
[2024-11-24] MEDS ORDERED: INSULIN LISPRO 1 UNIT/0.01 ML SQ SCH (22:26)
[2024-11-24 22:44] LABS: BUN 30 mg/dl (9-23)
[2024-11-25] VITALS (7 sets, daily range): BP systolic 101–149; BP diastolic 41–66
[2024-11-25] MEDS ORDERED: HEEL PROTECTOR DEVICE ONE (02:39)
[2024-11-25] MEDS ORDERED: FOAM BANDAGE HEEL T ONE (02:39)
[2024-11-25 06:14] LABS: BASO # 0.1 10*3/uL (0.0-0.1); BASO % 0.5 % (0.0-1.0); EOS # 0.1 10*3/uL (0.0-0.4); EOS % 0.6 % (1.0-4.0); MEAN CELL VOLUME 92.0 fl (81.0-99.0); MEAN CORPUSCULAR HGB 29.2 pg (27.0-31.0); MEAN PLATELET VOLUME 9.5 fl (9.6-12.3); MONO # 0.8 10*3/uL (0.1-1.0); MONO % 3.7 % (3.0-9.0); NEUT # 18.6 10*3/uL (2.3-7.9); NEUT % 88.9 % (47.0-73.0); NUCLEATED RED BLOOD CELL 0.0 % (0.0-0.0); NUCLEATED RED BLOOD CELL 0.0 10*3/uL (0.0-0.0); PLATELET COUNT AUTOMATED 528 10*3/uL (130-400); RED CELL DISTRI WIDTH 15.1 % (0-14.5)
[2024-11-25 06:19] LABS: BUN 36 mg/dl (9-23); FREE T4 1.37 ng/dl (0.89-1.76); LDL CHOLESTEROL 33 mg/dL (9-159); SGPT/ALT 14 U/L (5-49)
[2024-11-25 06:35] LABS: ACT PARTIAL THROMBO TIME 29.0 SECONDS (20.0-32.1)
[2024-11-25 07:08] LABS: VITAMIN D, 25-HYDROXY 20.1 ng/mL (30-100)
[2024-11-25] MEDS ORDERED: Cefepime Hydrochloride 2 GM in SODIUM CHLORIDE 0.9% 50 ML IV SCH (08:00)
[2024-11-25] MEDS ORDERED: FLUCONAZOLE 100 MG TAB PO SCH (10:00)
[2024-11-25] MEDS ORDERED: Vancomycin Hydrochloride 1,000 MG in SODIUM CHLORIDE 0.9% 250 ML IV SCH (14:00)
[2024-11-25] MEDS ORDERED: FLUCONAZOLE 100 ML IV SCH (14:00)
[2024-11-25] MEDS ORDERED: SODIUM CHLORIDE 0.9% 1,000 ML IV ONE (18:00)
[2024-11-25] MEDS ORDERED: Insulin Glargine, Recombinan 1 UNIT/0.01 ML SC SCH (22:00)
[2024-11-26] VITALS: BP 144/46
[2024-11-26 07:28] LABS: BASO % 0.8 % (0.0-1.0); NUCLEATED RED BLOOD CELL 0.0 % (0.0-0.0); NUCLEATED RED BLOOD CELL 0.0 10*3/uL (0.0-0.0)
[2024-11-26 07:44] LABS: BASO # 0.1 10*3/uL (0.0-0.1); EOS # 0.6 10*3/uL (0.0-0.4); EOS % 4.9 % (1.0-4.0); MEAN CELL VOLUME 94.4 fl (81.0-99.0); MEAN CORPUSCULAR HGB 29.9 pg (27.0-31.0); MEAN PLATELET VOLUME 9.4 fl (9.6-12.3); MONO # 0.5 10*3/uL (0.1-1.0); MONO % 3.5 % (3.0-9.0); NEUT # 10.9 10*3/uL (2.3-7.9); NEUT % 83.9 % (47.0-73.0); PLATELET COUNT AUTOMATED 426 10*3/uL (130-400); RED CELL DISTRI WIDTH 15.0 % (0-14.5)
[2024-11-26 07:57] LABS: BUN 30 mg/dl (9-23)
[2024-11-26 08:00] VITALS: BP 135/47
[2024-11-26 08:40] LABS: BILIRUBIN Negative (Negative); BLOOD 1+ (Negative); CLARITY Cloudy (Clear); COLOR Yellow (Yellow); KETONE 2+ (Negative); LEUKO ESTERASE 2+ (Negative); NITRITE Negative (Negative); PH 5.0 (4.5-8.0); SPECIFIC GRAVITY 1.020 (1.001-1.030); UROBILINOGEN 0.2 E.U./dl (0.0-1.0)
[2024-11-26] MEDS ORDERED: Vancomycin Hydrochloride 1,000 MG in SODIUM CHLORIDE 0.9% 250 ML IV SCH (09:00)
[2024-11-26 09:11] LABS: BACTERIA 4+; EPITHELIAL CELLS 21-30; MUCOUS 1+; WBC 41-50 wbc/hpf (0-5); YEAST 3+
[2024-11-26] MEDS ORDERED: Cholecalciferol 2,000 UNIT TABLET (50 MCG) PO SCH (10:00)
[2024-11-26] MEDS ORDERED: FLUCONAZOLE 100 ML IV SCH (10:00)
[2024-11-26 12:00] VITALS: BP 153/53
[2024-11-26] MEDS ORDERED: SODIUM CHLORIDE 0.9% 1,000 ML IV SCH (15:40)
[2024-11-26 16:00] VITALS: BP 146/49
[2024-11-26 20:00] VITALS: BP 98/64
[2024-11-26] MEDS ORDERED: NYSTATIN 15 GM BOT T SCH (22:00)
[2024-11-26 22:11] LABS: BASO # 0.1 10*3/uL (0.0-0.1); BASO % 0.8 % (0.0-1.0); EOS # 0.5 10*3/uL (0.0-0.4); EOS % 3.2 % (1.0-4.0); MEAN CELL VOLUME 92.0 fl (81.0-99.0); MEAN CORPUSCULAR HGB 29.8 pg (27.0-31.0); MEAN PLATELET VOLUME 9.1 fl (9.6-12.3); MONO # 0.6 10*3/uL (0.1-1.0); MONO % 4.4 % (3.0-9.0); NEUT # 11.9 10*3/uL (2.3-7.9); NEUT % 84.1 % (47.0-73.0); NUCLEATED RED BLOOD CELL 0.0 % (0.0-0.0); NUCLEATED RED BLOOD CELL 0.0 10*3/uL (0.0-0.0); PLATELET COUNT AUTOMATED 459 10*3/uL (130-400); RED CELL DISTRI WIDTH 14.9 % (0-14.5)
[2024-11-27] VITALS: BP 112/82
[2024-11-27 05:05] LABS: BUN 29 mg/dl (9-23)
[2024-11-27 06:23] LABS: BASO # 0.1 10*3/uL (0.0-0.1); BASO % 0.7 % (0.0-1.0); EOS # 0.5 10*3/uL (0.0-0.4); EOS % 3.6 % (1.0-4.0); MEAN CORPUSCULAR HGB 29.4 pg (27.0-31.0); MEAN PLATELET VOLUME 10.1 fl (9.6-12.3); MONO # 0.6 10*3/uL (0.1-1.0); MONO % 4.2 % (3.0-9.0); NEUT # 11.6 10*3/uL (2.3-7.9); NEUT % 84.9 % (47.0-73.0); NUCLEATED RED BLOOD CELL 0.0 % (0.0-0.0); NUCLEATED RED BLOOD CELL 0.0 10*3/uL (0.0-0.0); PLATELET COUNT AUTOMATED 507 10*3/uL (130-400); RED CELL DISTRI WIDTH 14.9 % (0-14.5)
[2024-11-27 06:29] LABS: MEAN CELL VOLUME 96.8 fl (81.0-99.0)
[2024-11-27 08:00] VITALS: BP 128/46
[2024-11-27] MEDS ORDERED: SODIUM CHLORIDE 0.9% 1,000 ML IV ONE (08:25)
[2024-11-27 09:13] LABS: BUN 29 mg/dl (9-23)
[2024-11-27 09:14] LABS: ABG BASE EXCESS -6.6 mmol/L (-2.0-3.0); ABG O2 SATURATION 96.4 % (94.0-98.0); ARTERIAL BLOOD GAS PH 7.413 (7.350-7.450); ARTERIAL BLOOD GAS PO2 85.0 mmHg (83.0-108.0)
[2024-11-27 12:00] VITALS: BP 138/41
[2024-11-27 13:17] LABS: BUN 28 mg/dl (9-23)
[2024-11-27 16:00] VITALS: BP 150/63
[2024-11-27 20:00] VITALS: BP 172/67
[2024-11-27] MEDS ORDERED: FLUCONAZOLE 100 ML IV SCH (22:00)
[2024-11-28] VITALS: BP 153/52
[2024-11-28 04:00] VITALS: BP 154/44
[2024-11-28 06:02] LABS: BUN 21 mg/dl (9-23)
[2024-11-28 06:24] LABS: BASO # 0.1 10*3/uL (0.0-0.1); BASO % 0.7 % (0.0-1.0); EOS # 0.7 10*3/uL (0.0-0.4); EOS % 6.4 % (1.0-4.0); MEAN CORPUSCULAR HGB 29.5 pg (27.0-31.0); MEAN PLATELET VOLUME 9.5 fl (9.6-12.3); MONO # 0.6 10*3/uL (0.1-1.0); MONO % 5.4 % (3.0-9.0); NEUT # 8.6 10*3/uL (2.3-7.9); NEUT % 77.6 % (47.0-73.0); NUCLEATED RED BLOOD CELL 0.0 % (0.0-0.0); NUCLEATED RED BLOOD CELL 0.0 10*3/uL (0.0-0.0); PLATELET COUNT AUTOMATED 427 10*3/uL (130-400); RED CELL DISTRI WIDTH 14.6 % (0-14.5)
[2024-11-28] MEDS ORDERED: POTASSIUM CHLORIDE 20 MEQ TAB PO ONE (06:25)
[2024-11-28 06:26] LABS: MEAN CELL VOLUME 92.7 fl (81.0-99.0)
[2024-11-28] MEDS ORDERED: Potassium Bicarbonate/Potass 25 MEQ TAB PEG ONE (07:15)
[2024-11-28 08:00] VITALS: BP 150/48
[2024-11-28] MEDS ORDERED: LISINOPRIL 40 MG TAB PO SCH (10:00)
[2024-11-28] MEDS ORDERED: ATORVASTATIN CALCIUM 40 MG TABLET PO SCH (10:00)
[2024-11-28 12:00] VITALS: BP 155/54
[2024-11-28 16:00] VITALS: BP 148/79
[2024-11-28 20:00] VITALS: BP 119/49
[2024-11-29 04:54] LABS: BUN 20 mg/dl (9-23)
[2024-11-29 06:13] LABS: BASO # 0.1 10*3/uL (0.0-0.1); BASO % 0.4 % (0.0-1.0); EOS # 0.3 10*3/uL (0.0-0.4); EOS % 1.8 % (1.0-4.0); MEAN CELL VOLUME 92.3 fl (81.0-99.0); MEAN CORPUSCULAR HGB 29.2 pg (27.0-31.0); MEAN PLATELET VOLUME 9.8 fl (9.6-12.3); MONO # 1.0 10*3/uL (0.1-1.0); MONO % 6.8 % (3.0-9.0); NEUT # 11.9 10*3/uL (2.3-7.9); NEUT % 85.3 % (47.0-73.0); NUCLEATED RED BLOOD CELL 0.0 % (0.0-0.0); NUCLEATED RED BLOOD CELL 0.0 10*3/uL (0.0-0.0); PLATELET COUNT AUTOMATED 434 10*3/uL (130-400); RED CELL DISTRI WIDTH 14.6 % (0-14.5)
[2024-11-29 08:00] VITALS: BP 128/49
[2024-11-29] MEDS ORDERED: Vitamin D 1,000 IU TAB (25 MCG) PO SCH (10:00)
[2024-11-29 12:00] VITALS: BP 147/55
[2024-11-29 16:00] VITALS: BP 121/42
[2024-11-29] MEDS ORDERED: INSULIN LISPRO 1 UNIT/0.01 ML SQ SCH (16:30)
[2024-11-29 20:00] VITALS: BP 145/49
[2024-11-29] MEDS ORDERED: Insulin Glargine, Recombinan 1 UNIT/0.01 ML SC SCH (22:00)
[2024-11-30] VITALS (9 sets, daily range): BP systolic 101–152; BP diastolic 52–75
[2024-11-30 05:16] LABS: BUN 21 mg/dl (9-23)
[2024-11-30 06:08] LABS: BASO # 0.1 10*3/uL (0.0-0.1); BASO % 0.8 % (0.0-1.0); EOS # 0.7 10*3/uL (0.0-0.4); EOS % 7.4 % (1.0-4.0); MEAN CELL VOLUME 90.6 fl (81.0-99.0); MEAN CORPUSCULAR HGB 29.1 pg (27.0-31.0); MEAN PLATELET VOLUME 9.7 fl (9.6-12.3); MONO # 0.8 10*3/uL (0.1-1.0); MONO % 8.1 % (3.0-9.0); NEUT # 6.7 10*3/uL (2.3-7.9); NEUT % 68.1 % (47.0-73.0); NUCLEATED RED BLOOD CELL 0.0 % (0.0-0.0); NUCLEATED RED BLOOD CELL 0.0 10*3/uL (0.0-0.0); PLATELET COUNT AUTOMATED 422 10*3/uL (130-400); RED CELL DISTRI WIDTH 14.6 % (0-14.5)
[2024-11-30] MEDS ORDERED: Lactated Ringer's Solution 500 ML IV ONE (07:29)
[2024-11-30] MEDS ORDERED: Lidocaine Hydrochloride 2% 5 ML SDV IV ONE (10:26)
[2024-11-30] MEDS ORDERED: PROPOFOL 200 MG/20 ML VIAL IV ONE (10:26)
[2024-12-01] VITALS: BP 112/58
[2024-12-01 06:01] LABS: BUN 20 mg/dl (9-23)
[2024-12-01 06:02] LABS: BASO # 0.1 10*3/uL (0.0-0.1); BASO % 0.6 % (0.0-1.0); EOS # 0.8 10*3/uL (0.0-0.4); EOS % 8.3 % (1.0-4.0); MEAN CELL VOLUME 90.6 fl (81.0-99.0); MEAN CORPUSCULAR HGB 29.3 pg (27.0-31.0); MEAN PLATELET VOLUME 9.5 fl (9.6-12.3); MONO # 0.8 10*3/uL (0.1-1.0); MONO % 7.6 % (3.0-9.0); NEUT # 7.0 10*3/uL (2.3-7.9); NEUT % 69.7 % (47.0-73.0); NUCLEATED RED BLOOD CELL 0.0 % (0.0-0.0); NUCLEATED RED BLOOD CELL 0.0 10*3/uL (0.0-0.0); PLATELET COUNT AUTOMATED 446 10*3/uL (130-400); RED CELL DISTRI WIDTH 14.5 % (0-14.5)
[2024-12-01] MEDS ORDERED: INSULIN LISPRO 1 UNIT/0.01 ML SQ SCH (07:30)
[2024-12-01 08:00] VITALS: BP 174/74
[2024-12-01] MEDS ORDERED: LEVOFLOXACIN 750 MG TAB PO SCH (10:00)
[2024-12-01 12:00] VITALS: BP 132/84
[2024-12-01] MEDS ORDERED: Vitamin D (1,000 UNI PO (13:28)
[2024-12-01] MEDS ORDERED: LEVOFLOXACIN750 M2 PO (13:28)
[2024-12-01] MEDS ORDERED: Insulin Glargine, Recombinan 1 UNIT/0.01 ML SC SCH (22:00)
== END 2024-12-01 16:29 | disposition home health service (06) | DRG 871 ==
LOC: ED 16:25 → 4E 21:06 → EDHOLD 21:06 → ICCU 21:06 → 4E 11-25 00:27 → ICCU 11-27 07:23 → 4E 11-27 07:25 → ICCU 11-27 07:59
PROVIDERS: Student in an Organized Health Care Education/Training Program; ADMIT Student in an Organized Health Care Education/Training Program; ATTEND Student in an Organized Health Care Education/Training Program
PROC: 0DB38ZX Excision of Lower Esophagus, Via Natural or Artificial Opening Endoscopic, Diagnostic (ICD-10-PCS; principal; 2024-11-30)
PROC: 0DB28ZX Excision of Middle Esophagus, Via Natural or Artificial Opening Endoscopic, Diagnostic (ICD-10-PCS; 2024-11-30)
DX: A41.9 Sepsis, unspecified organism (principal); E10.10 Type 1 diabetes mellitus with ketoacidosis without coma; J18.9 Pneumonia, unspecified organism; J69.0 Pneumonitis due to inhalation of food and vomit; J96.01 Acute respiratory failure with hypoxia; N39.0 Urinary tract infection, site not specified; E87.1 Hypo-osmolality and hyponatremia; B37.81 Candidal esophagitis; N17.9 Acute kidney failure, unspecified; K92.0 Hematemesis; R65.20 Severe sepsis without septic shock; E87.5 Hyperkalemia; E87.8 Other disorders of electrolyte and fluid balance, not elsewhere classified; D75.839 Thrombocytosis, unspecified; E55.9 Vitamin D deficiency, unspecified; K21.00 Gastro-esophageal reflux disease with esophagitis, without bleeding; D64.9 Anemia, unspecified; I50.9 Heart failure, unspecified; I11.0 Hypertensive heart disease with heart failure; Z88.0 Allergy status to penicillin; Z88.2 Allergy status to sulfonamides

== ENCOUNTER 2024-12-16 13:53 | Inpatient (IN) | payer OTHER ==
[~2024-12-16] VITALS: Ht 170.2 cm; Wt 77.3 kg
[~2024-12-16 13:53] MED LIST changes: +LEVOFLOXACIN750 M2 PO; +Vitamin D (1,000 UNI PO
[2024-12-16 16:00] VITALS: BP 138/58
[2024-12-16] MEDS ORDERED: LORazepam 2 MG/ML VIAL IV PRN (16:10)
[2024-12-16] MEDS ORDERED: Ondansetron Hydrochloride 4 MG/2 ML VIAL IV PRN (16:10)
[2024-12-16] MEDS ORDERED: Acetaminophen/Hydrocodone 5 MG/325 MG TABLET PO PRN (16:10)
[2024-12-16] MEDS ORDERED: GLYCOPYRROLATE 1 MG TAB PO SCH (18:00)
[2024-12-16 20:00] VITALS: BP 180/59
[2024-12-17] VITALS: BP 158/64
[2024-12-17 08:00] VITALS: BP 169/57
[2024-12-17 12:00] VITALS: BP 181/65
[2024-12-17 16:00] VITALS: BP 187/68
[2024-12-17 20:00] VITALS: BP 175/58
[2024-12-18] VITALS: BP 156/48
[2024-12-18 08:00] VITALS: BP 94/43
[2024-12-18] MEDS ORDERED: DEXTROSE 50% 25 GM/50 ML VIAL IV PRN (09:50)
[2024-12-18] MEDS ORDERED: INSULIN LISPRO 1 UNIT/0.01 ML SQ ONE (10:25)
[2024-12-18] MEDS ORDERED: INSULIN LISPRO 1 UNIT/0.01 ML SQ SCH (11:30)
[2024-12-18 12:00] VITALS: BP 77/35
[2024-12-18 15:54] VITALS: BP 111/35
[2024-12-18] MEDS ORDERED: ATROPINE SULFATE 1% 2 ML BOTTLE SL PRN (16:00)
[2024-12-18 20:00] VITALS: BP 110/26
[2024-12-19] VITALS: BP 104/23
[2024-12-19] MEDS ORDERED: ACETAMINOPHEN 650 MG SUPP R SCH
[2024-12-19] MEDS ORDERED: ACETAMINOPHEN 650 MG SUPP R PRN (03:26)
[2024-12-19] MEDS ORDERED: BISACODYL 10 MG SUPP R PRN (03:30)
[2024-12-19 08:00] VITALS: BP 77/24
[2024-12-19] MEDS ORDERED: BISACODYL 10 MG SUPP R SCH (10:00)
[2024-12-19 12:00] VITALS: BP 68/44
[2024-12-19 16:00] VITALS: BP 78/34
== END 2024-12-19 19:40 | DRG 871 ==
LOC: 5E 13:53
PROVIDERS: ADMIT Internal Medicine; ATTEND Internal Medicine
DX: A41.9 Sepsis, unspecified organism (principal); J69.0 Pneumonitis due to inhalation of food and vomit; E87.20 Acidosis, unspecified; N17.9 Acute kidney failure, unspecified; K92.2 Gastrointestinal hemorrhage, unspecified; N30.00 Acute cystitis without hematuria; K92.0 Hematemesis; E10.65 Type 1 diabetes mellitus with hyperglycemia; K21.9 Gastro-esophageal reflux disease without esophagitis; R65.20 Severe sepsis without septic shock; K44.9 Diaphragmatic hernia without obstruction or gangrene; D64.9 Anemia, unspecified; R33.9 Retention of urine, unspecified; Z71.89 Other specified counseling; Z51.5 Encounter for palliative care; Z86.73 Personal history of transient ischemic attack (TIA), and cerebral infarction without residual deficits